=== PATIENT | male | born 1950 ===

== ENCOUNTER 2024-04-15 11:39 | Day surgery (SDC) | payer OTHER ==
[~2024-04-15] VITALS: Ht 180.3 cm; Wt 86.4 kg
[~2024-04-15 11:39] MED LIST: ABIRATERONE AC250 MG; AMLO10; Atropine Sulfate 0.1 MG/ML 10ML SYR ONE; BALSALAZIDE DI750 M1; Glycopyrrolate 0.2 MG/ML 1MLVIAL ONE; LOSA50; LUPRON DEPOT22.5 M1; Lactated Ringer's 1,000 ML IV ONE; Lidocaine 2% 5 ML SDV ONE; Lidocaine HCl/Pf 1% 5 ML VIAL ONE; Methylene Blue 1% 100 MG/10 ML VIAL ONE; Ondansetron HCl 2 MG / ML 2ML Vial ONE; PRED1; TAMS.4ER; ePHEDrine Sulfate 50 MG/ML 1ML Injection ONE; propofoL 50 ML IV ONE
[2024-04-15] MEDS ORDERED: propofoL 50 ML IV ONE (12:52)
[2024-04-15] MEDS ORDERED: NS 500 ML IV ONE (12:55)
[2024-04-15] MEDS ORDERED: Lactated Ringer's 1,000 ML IV ONE (13:17)
[2024-04-15 13:58] VITALS: BP 124/78
== END 2024-04-15 13:56 | disposition home or self-care (01) ==
LOC: ORSCSDS 11:39
PROVIDERS: Internal Medicine Gastroenterology
PROC: 0DBP8ZX Excision of Rectum, Via Natural or Artificial Opening Endoscopic, Diagnostic (ICD-10-PCS; principal; 2024-04-15 13:30)
PROC: 0D5P8ZZ Destruction of Rectum, Via Natural or Artificial Opening Endoscopic (ICD-10-PCS; principal; 2024-04-15 13:30)
PROC: 0DBL8ZX Excision of Transverse Colon, Via Natural or Artificial Opening Endoscopic, Diagnostic (ICD-10-PCS; principal; 2024-04-15 13:30)
DX: K62.5 Hemorrhage of anus and rectum (principal); K62.7 Radiation proctitis; D12.3 Benign neoplasm of transverse colon; K57.30 Diverticulosis of large intestine without perforation or abscess without bleeding; K64.4 Residual hemorrhoidal skin tags; I10 Essential (primary) hypertension; Z85.46 Personal history of malignant neoplasm of prostate; Z86.010 Personal history of colon polyps; Z79.899 Other long term (current) drug therapy
CPT/HCPCS: 88305; J0461; J2001; J2405; J2704; J7120; Q9968